=== PATIENT | male | born 1955 | race Caucasian/White ===

== ENCOUNTER 2021-04-07 22:10 | Inpatient (IN) | payer BC, MEDICARE ==
[~2021-04-07] VITALS: Ht 182.9 cm; Wt 102.1 kg
[2021-04-07 22:28] LABS: BASOPHILS # (AUTO) 0.1 (0.0-0.1); BASOPHILS % 0.7 % (0.0-1.0); EOSINOPHILS # (AUTO) 0.1 (0.0-0.4); EOSINOPHILS % 1.1 % (0.0-6.0); HEMATOCRIT 47.6 % (38.2-49.6); HEMOGLOBIN 16.7 g/dL (14.0-18.0); LYMPHOCYTES # (AUTO) 1.9 (1.0-3.2); LYMPHOCYTES % 15.6 % (18.0-39.1); MEAN CORPUSCULAR HEMOGLOBIN 32.5 pg (28-32); MEAN CORPUSCULAR HGB CONC 35.1 g/dL (31-35); MEAN CORPUSCULAR VOLUME 92.6 fL (81-99); MONOCYTES # (AUTO) 0.6 (0.2-0.8); NEUTROPHILS # (AUTO) 9.3 (2.1-6.9); NEUTROPHILS % 76.9 % (38.7-80.0); PLATELET COUNT 196 x10e3/uL (140-360); RED BLOOD COUNT 5.14 x10e6/uL (4.3-5.7); RED CELL DISTRIBUTION WIDTH 12.2 % (11.7-14.4)
[2021-04-07 22:37] LABS: INR 0.93; PROTHROMBIN TIME 12.9 seconds (11.9-14.5)
[2021-04-07 22:38] LABS: PARTIAL THROMBOPLASTIN TIME 28.1 seconds (23.8-35.5)
[2021-04-07] MEDS ORDERED: LIDOCAINE JELLY 2% 10ML URO-JET ONE (22:42)
[2021-04-07 22:47] LABS: ALBUMIN 4.4 g/dL (3.5-5.0); ALBUMIN/GLOBULIN RATIO 1.4 (0.8-2.0); ANION GAP 15.2 mmol/L (8-16); CALCIUM 9.7 mg/dL (8.4-10.2); CREATININE, SERUM 1.59 mg/dL (0.72-1.25); POTASSIUM 4.2 mmol/L (3.5-5.1)
[2021-04-07 22:52] LABS: BACTERIA,URINE FEW /HPF; CLARITY,URINE TURBID (CLEAR); COLOR,URINE RED (YELLOW); EPITHELIAL CELLS,URINE RARE /LPF; KETONES,URINE NEGATIVE (NEGATIVE); LEUKOCYTE ESTERASE ,URINE NEGATIVE (NEGATIVE); NITRITE,URINE POSITIVE (NEGATIVE); PROTEIN,URINE DIPSTICK >=300 (NEGATIVE); RBC,URINE >50 /HPF (0-5); URINE UROBILINOGEN 0.2 mg/dL (0.2 - 1)
[2021-04-07] MEDS ORDERED: IOPAMIDOL 370 MG/ML 200 ML INFUS..BTL INJ ONE (23:42)
[2021-04-07] MEDS ORDERED: SODIUM CHLORIDE 0.9% 250ML 0 ML ONE (23:42)
[2021-04-08] VITALS (7 sets, daily range): BP systolic 121–138; BP diastolic 70–85
[2021-04-08] MEDS ORDERED: Morphine 2mg Syringe 2 MG/ML SYR IV STA (00:55)
[2021-04-08] MEDS ORDERED: ONDANSETRON HCL INJ 2MG/ML 2ML 2 MG/ML VIAL IV STA (01:07)
[2021-04-08] MEDS ORDERED: Morphine 2mg Syringe 2 MG/ML SYR ONE (01:13)
[2021-04-08] MEDS ORDERED: ONDANSETRON HCL INJ 2MG/ML 2ML 2 MG/ML VIAL ONE (01:19)
[2021-04-08] MEDS ORDERED: SODIUM CHLORIDE FLUSH 10 ML SYR INJ PRN (02:00)
[2021-04-08] MEDS ORDERED: ONDANSETRON HCL INJ 2MG/ML 2ML 2 MG/ML VIAL IV PRN (02:00)
[2021-04-08] MEDS: Morphine 4mg Syringe 4 MG/ML INJ IV PRN ×2 (05:33→14:45)
[2021-04-08] MEDS ORDERED: CEFTRIAXONE 1 GM in SODIUM CHLORIDE 0.9% 50ML 50 ML IV SCH (10:00)
[2021-04-08] MEDS ORDERED: METOPROLOL TART50 MG PO (10:23)
[2021-04-08] MEDS ORDERED: ATORVASTATIN CA20 MG PO (10:23)
[2021-04-08] MEDS ORDERED: LISINOPRIL10 MG PO (10:23)
[2021-04-08] MEDS ORDERED: PROTONIX20 MG PO (10:23)
[2021-04-08] MEDS ORDERED: PANTOPRAZOLE SOD 40 MG TABEC PO SCH (10:30)
[2021-04-08] MEDS ORDERED: SODIUM CHLORIDE 0.9% 250ML 250 ML ONE (10:43)
[2021-04-08] MEDS ORDERED: SODIUM CHLORIDE 0.9% 50ML 50 ML ONE (10:51)
[2021-04-08] MEDS ORDERED: GADOBENATE DIMEGLUMINE 1 ML IV ONE (10:52)
[2021-04-08] MEDS ORDERED: HYDROCODON-ACE1 EA11 PO ×2 (16:27→17:10)
[2021-04-08] MEDS ORDERED: CIPRO500 MG PO (16:27)
[2021-04-08] MEDS ORDERED: METOPROLOL TARTRATE 50 MG TAB PO SCH (17:00)
[2021-04-08] MEDS ORDERED: ONDANSETRON HCL 4 MG ORAL DISINTEGRATING TAB PO PRN (18:15)
[2021-04-08] MEDS ORDERED: ATORVASTATIN 20 MG TAB PO SCH (21:00)
[2021-04-10] MEDS ORDERED: HYDROCODON-ACE1 EA11 PO (12:58)
== END 2021-04-08 18:43 | disposition home or self-care (01) | DRG 687 ==
LOC: ER 22:17 → ERHOLD 04-08 02:20 → IMCU 04-08 03:04
PROVIDERS: ADMIT Internal Medicine; ATTEND Internal Medicine
DX: C64.2 Malignant neoplasm of left kidney, except renal pelvis (principal); N39.0 Urinary tract infection, site not specified; R31.9 Hematuria, unspecified; E78.5 Hyperlipidemia, unspecified; I12.9 Hypertensive chronic kidney disease with stage 1 through stage 4 chronic kidney disease, or unspecified chronic kidney disease; N18.9 Chronic kidney disease, unspecified; K21.9 Gastro-esophageal reflux disease without esophagitis; Z90.49 Acquired absence of other specified parts of digestive tract; Z20.822 Contact with and (suspected) exposure to COVID-19
CPT/HCPCS: 36415; 51700; 74176; 74178; 74183; 80053; 81001; 85025; 85610; 85730; 87086; 99284; J0696; J2270; J2405; J7050; Q9967; U0002

== ENCOUNTER 2021-04-21 09:14 | Inpatient (IN) | payer BC, MEDICARE ==
[2021-04-18 14:26] LABS: BASOPHILS # (AUTO) 0.1 (0.0-0.1); BASOPHILS % 0.9 % (0.0-1.0); EOSINOPHILS # (AUTO) 0.2 (0.0-0.4); EOSINOPHILS % 1.9 % (0.0-6.0); HEMATOCRIT 47.4 % (38.2-49.6); HEMOGLOBIN 16.3 g/dL (14.0-18.0); LYMPHOCYTES # (AUTO) 1.7 (1.0-3.2); MEAN CORPUSCULAR HEMOGLOBIN 32.1 pg (28-32); MEAN CORPUSCULAR HGB CONC 34.4 g/dL (31-35); MEAN CORPUSCULAR VOLUME 93.3 fL (81-99); MONOCYTES # (AUTO) 0.8 (0.2-0.8); MONOCYTES % 8.8 % (4.4-11.3); NEUTROPHILS # (AUTO) 5.8 (2.1-6.9); NEUTROPHILS % 67.1 % (38.7-80.0); PLATELET COUNT 230 x10e3/uL (140-360); RED BLOOD COUNT 5.08 x10e6/uL (4.3-5.7); RED CELL DISTRIBUTION WIDTH 11.9 % (11.7-14.4)
[2021-04-18 14:42] LABS: ANION GAP 16.5 mmol/L (8-16); CALCIUM 9.6 mg/dL (8.4-10.2); CREATININE, SERUM 1.48 mg/dL (0.72-1.25); POTASSIUM 4.5 mmol/L (3.5-5.1)
[~2021-04-21] VITALS: Ht 182.9 cm; Wt 99.3 kg
[~2021-04-21 09:14] MED LIST: ATORVASTATIN CA20 MG PO; CATAPRES-TTS 11 EACH TD; CIPRO500 MG PO; HYDROCODON-ACE1 EA11 PO; LISINOPRIL10 MG PO; METOPROLOL TART50 MG PO; PROTONIX20 MG PO
[2021-04-21] MEDS ORDERED: THROMBIN FOR SOLN 5,000 UNIT VIAL ONE (10:06)
[2021-04-21] MEDS ORDERED: MANNITOL 25% 12.5GM/50ML 0 ML ONE (10:06)
[2021-04-21] MEDS ORDERED: CEFTRIAXONE 1 GM VIAL ONE (10:20)
[2021-04-21] MEDS ORDERED: SODIUM CHLORIDE 0.9% 50ML 50 ML ONE (10:20)
[2021-04-21] MEDS ORDERED: METOCLOPRAMIDE HCL 10 MG/2ML VIAL ONE (10:50)
[2021-04-21] MEDS ORDERED: FAMOTIDINE 20 MG/2 ML VIAL IV ONE ×3 (10:50)
[2021-04-21] MEDS ORDERED: POVIDONE IODINE 0.05% 0.05 % ML PO ONE (12:51)
[2021-04-21] MEDS ORDERED: ONDANSETRON HCL INJ 2MG/ML 2ML 2 MG/ML VIAL ONE (12:51)
[2021-04-21] MEDS ORDERED: DEXAMETHASONE SOD PHOS INJ 4 MG/ML SDV ONE (12:51)
[2021-04-21] MEDS ORDERED: PROPOFOL IV EMULSION 10 MG/ML 20 ML VIAL ONE (12:51)
[2021-04-21] MEDS ORDERED: GLYCOPYRROLATE INJ 0.2 MG/ML VIAL ONE (12:51)
[2021-04-21] MEDS ORDERED: LIDOCAINE HCL 2% LOCAL INJ 5 ML SDV VIAL INJ ONE (12:51)
[2021-04-21] MEDS ORDERED: EPHEDRINE SULFATE INJ 50 MG/ML VIAL ONE (12:51)
[2021-04-21] MEDS ORDERED: NEOSTIGMINE 1 MG/ML 10ML VIAL ONE (12:51)
[2021-04-21] MEDS ORDERED: SUCCINYLCHOLINE CHLORIDE 20 MG/ML 10ML VIAL ONE (12:51)
[2021-04-21] MEDS ORDERED: SEVOFLURANE INHAL SOLN 250 ML PEN BTL ONE (12:51)
[2021-04-21] MEDS ORDERED: ROCURONIUM BROMIDE 10 MG/ML 5ML VIAL IV ONE (12:51)
[2021-04-21] MEDS ORDERED: MEPERIDINE HCL INJ 25 MG/ML VIAL ONE (13:33)
[2021-04-21] MEDS ORDERED: MORPHINE SULFATE 1 MG/ML 30ML PCA ONE (14:01)
[2021-04-21] MEDS ORDERED: MORPHINE SULFATE 1 MG/ML 30ML PCA IV PRN (14:45)
[2021-04-21 14:59] VITALS: BP 106/63
[2021-04-21] MEDS: DEXTROSE 5%/LACTATED RINGERS 1,000 ML IV SCH (15:00)
[2021-04-21 15:12] VITALS: BP 106/63
[2021-04-21] MEDS ORDERED: FENTANYL CITRATE/PF 100MCG/2 ML INJ ONE (17:17)
[2021-04-21 20:00] VITALS: BP 110/72
[2021-04-21 21:00] VITALS: BP 110/72
[2021-04-21] MEDS: TAMSULOSIN HCL 0.4 MG CAP PO SCH (21:59)
[2021-04-22] VITALS (8 sets, daily range): BP systolic 100–112; BP diastolic 51–67
[2021-04-22] MEDS: DEXTROSE 5%/LACTATED RINGERS 1,000 ML IV SCH ×3 (00:48→17:56)
[2021-04-22] MEDS ORDERED: HYDROCODONE/APAP 5MG-325MG TAB PO PRN (08:00)
[2021-04-22 08:13] LABS: BASOPHILS % 0.2 % (0.0-1.0); HEMOGLOBIN 13.9 g/dL (14.0-18.0); LYMPHOCYTES # (AUTO) 0.9 (1.0-3.2); LYMPHOCYTES % 5.2 % (18.0-39.1); MEAN CORPUSCULAR HEMOGLOBIN 32.2 pg (28-32); MEAN CORPUSCULAR HGB CONC 34.8 g/dL (31-35); MEAN CORPUSCULAR VOLUME 92.6 fL (81-99); MONOCYTES # (AUTO) 1.1 (0.2-0.8); MONOCYTES % 6.6 % (4.4-11.3); NEUTROPHILS # (AUTO) 14.7 (2.1-6.9); NEUTROPHILS % 87.5 % (38.7-80.0); PLATELET COUNT 194 x10e3/uL (140-360); RED BLOOD COUNT 4.32 x10e6/uL (4.3-5.7); RED CELL DISTRIBUTION WIDTH 11.9 % (11.7-14.4)
[2021-04-22 08:34] LABS: ANION GAP 15.5 mmol/L (8-16); CALCIUM 8.4 mg/dL (8.4-10.2); CREATININE, SERUM 2.09 mg/dL (0.72-1.25); POTASSIUM 4.5 mmol/L (3.5-5.1)
[2021-04-22] MEDS: LISINOPRIL 10 MG TAB PO SCH (09:00)
[2021-04-22] MEDS ORDERED: PANTOPRAZOLE SOD 40 MG TABEC PO SCH (09:00)
[2021-04-22] MEDS ORDERED: PANTOPRAZOLE SOD 40 MG TABEC PO PRN (09:30)
[2021-04-22] MEDS ORDERED: METOPROLOL TARTRATE 50 MG TAB PO SCH (17:00)
[2021-04-22] MEDS: TAMSULOSIN HCL 0.4 MG CAP PO SCH (21:32)
[2021-04-22] MEDS: ATORVASTATIN 20 MG TAB PO SCH (21:32)
[2021-04-22] MEDS: METOPROLOL TARTRATE 50 MG TAB PO SCH (21:33)
[2021-04-23] VITALS (8 sets, daily range): BP systolic 110–125; BP diastolic 65–73
[2021-04-23] MEDS: DEXTROSE 5%/LACTATED RINGERS 1,000 ML IV SCH ×2 (09:00→17:14)
[2021-04-23] MEDS: LISINOPRIL 10 MG TAB PO SCH (10:00)
[2021-04-23] MEDS ORDERED: ASPIRIN81 MG PO (10:48)
[2021-04-23] MEDS ORDERED: LISINOPRIL-HCT1 EAC2 PO (10:48)
[2021-04-23] MEDS ORDERED: CLONIDINE HCL0.1 MG PO (10:48)
[2021-04-23] MEDS: TAMSULOSIN HCL 0.4 MG CAP PO SCH (20:49)
[2021-04-23] MEDS: ATORVASTATIN 20 MG TAB PO SCH (20:49)
[2021-04-23] MEDS: METOPROLOL TARTRATE 50 MG TAB PO SCH (20:50)
[2021-04-24] VITALS: BP 111/62
[2021-04-24 04:00] VITALS: BP 108/66
[2021-04-24] MEDS: DEXTROSE 5%/LACTATED RINGERS 1,000 ML IV SCH (05:24)
[2021-04-24] MEDS ORDERED: BISACODYL 5 MG TAB EC PO PRN (06:15)
[2021-04-24] MEDS ORDERED: POLYETHYLENE GLYCOL 3350 17 GM PACK PO SCH (06:15)
[2021-04-24 07:32] VITALS: BP 113/59
[2021-04-24 08:47] VITALS: BP 113/59
[2021-04-24] MEDS: LISINOPRIL 10 MG TAB PO SCH (08:58)
[2021-04-24 12:21] VITALS: BP 118/66
== END 2021-04-24 12:45 | disposition home or self-care (01) | DRG 658 ==
LOC: OR 09:14 → PACU V 14:14 → MED/SURG 14:40
PROVIDERS: ADMIT Urology; ATTEND Urology
PROC: 0TT10ZZ Resection of Left Kidney, Open Approach (ICD-10-PCS; principal; 2021-04-21 11:30)
DX: C64.2 Malignant neoplasm of left kidney, except renal pelvis (principal); I10 Essential (primary) hypertension; K21.9 Gastro-esophageal reflux disease without esophagitis; Z20.822 Contact with and (suspected) exposure to COVID-19
CPT/HCPCS: 36415; 71046; 80048; 85025; 86850; 86900; 88309; 88329; 93005; J0330; J0696; J1100; J2001; J2150; J2175; J2270; J2405; J2710; J2765; J3010; U0002

== ENCOUNTER → 2021-09-05 | Day surgery (SDC) | payer BC, MEDICARE ==
[~2021-09-05] MED LIST changes: +AMLODIPINE BESY10 MG PO; +ASPIRIN81 MG PO; +CLONIDINE HCL0.1 MG PO; +DEXAMETHASONE SOD PHOS INJ 4 MG/ML SDV ONE; +FENTANYL CITRATE/PF 100MCG/2 ML INJ ONE; +GLYCOPYRROLATE INJ 0.2 MG/ML VIAL ONE; +LIDOCAINE HCL 2% LOCAL INJ 5 ML SDV VIAL INJ ONE; +LISINOPRIL-HCT1 EAC2 PO; +MIDAZOLAM HCL 2 MG/2 ML VIAL ONE; +NEOSTIGMINE 1 MG/ML 10ML VIAL ONE; +ONDANSETRON HCL INJ 2MG/ML 2ML 2 MG/ML VIAL ONE; +POVIDONE IODINE 0.05% 0.05 % ML PO ONE; +PROPOFOL IV EMULSION 10 MG/ML 20 ML VIAL ONE; +ROCURONIUM BROMIDE 10 MG/ML 5ML VIAL IV ONE; +SEVOFLURANE INHAL SOLN 250 ML PEN BTL ONE
[2021-09-05 09:27] LABS: BASOPHILS # (AUTO) 0.1 (0.0-0.1); BASOPHILS % 0.9 % (0.0-1.0); EOSINOPHILS # (AUTO) 0.2 (0.0-0.4); EOSINOPHILS % 2.2 % (0.0-6.0); HEMATOCRIT 48.3 % (38.2-49.6); HEMOGLOBIN 16.9 g/dL (14.0-18.0); LYMPHOCYTES # (AUTO) 1.6 (1.0-3.2); LYMPHOCYTES % 20.8 % (18.0-39.1); MEAN CORPUSCULAR HEMOGLOBIN 31.5 pg (28-32); MEAN CORPUSCULAR VOLUME 89.9 fL (81-99); MONOCYTES # (AUTO) 0.5 (0.2-0.8); MONOCYTES % 7.1 % (4.4-11.3); NEUTROPHILS # (AUTO) 5.1 (2.1-6.9); NEUTROPHILS % 68.6 % (38.7-80.0); PLATELET COUNT 214 x10e3/uL (140-360); RED BLOOD COUNT 5.37 x10e6/uL (4.3-5.7); RED CELL DISTRIBUTION WIDTH 13.4 % (11.7-14.4)
[2021-09-05 12:50] VITALS: BP 112/64
[2021-09-05 12:58] LABS: WBC,FECAL (FECAL LACTOFERRIN) NEGATIVE (NEGATIVE)
[2021-09-07 14:54] LABS: C DIFFICILE TOXIN A&B AMP PROB NEGATIVE (NEGATIVE)
== END | disposition home or self-care (01) ==
LOC: OR 08:43
PROVIDERS: ATTEND Internal Medicine Gastroenterology
DX: K29.50 Unspecified chronic gastritis without bleeding (principal); D12.0 Benign neoplasm of cecum; D12.4 Benign neoplasm of descending colon; K31.7 Polyp of stomach and duodenum; K52.9 Noninfective gastroenteritis and colitis, unspecified; K22.2 Esophageal obstruction; K20.90 Esophagitis, unspecified without bleeding; K31.89 Other diseases of stomach and duodenum; K62.89 Other specified diseases of anus and rectum; K21.9 Gastro-esophageal reflux disease without esophagitis; K64.8 Other hemorrhoids; Z71.3 Dietary counseling and surveillance; I10 Essential (primary) hypertension; E78.5 Hyperlipidemia, unspecified; E78.00 Pure hypercholesterolemia, unspecified; H91.90 Unspecified hearing loss, unspecified ear; Z91.041 Radiographic dye allergy status; Z79.899 Other long term (current) drug therapy; Z68.31 Body mass index [BMI] 31.0-31.9, adult; Z85.528 Personal history of other malignant neoplasm of kidney; Z86.16 Personal history of COVID-19; Z87.891 Personal history of nicotine dependence
CPT/HCPCS: 36415; 43239; 45380; 45385; 83630; 83993; 85025; 87045; 87177; 87328; 87493; C9113; J1100; J2001; J2250; J2405; J2704; J2710; J3010; 45378; 45384

== ENCOUNTER → 2021-09-19 | Outpatient (CLI) | payer MEDICARE ==
[~2021-09-19] MED LIST changes: -DEXAMETHASONE SOD PHOS INJ 4 MG/ML SDV ONE; +DIATRIZOATE MEGL/DIATRIZOA SOD 30 ML BTL PO ONE; -FENTANYL CITRATE/PF 100MCG/2 ML INJ ONE; -GLYCOPYRROLATE INJ 0.2 MG/ML VIAL ONE; +IOPAMIDOL 370 MG/ML 200 ML INFUS..BTL INJ ONE; -LIDOCAINE HCL 2% LOCAL INJ 5 ML SDV VIAL INJ ONE; -MIDAZOLAM HCL 2 MG/2 ML VIAL ONE; -NEOSTIGMINE 1 MG/ML 10ML VIAL ONE; -ONDANSETRON HCL INJ 2MG/ML 2ML 2 MG/ML VIAL ONE; -POVIDONE IODINE 0.05% 0.05 % ML PO ONE; -PROPOFOL IV EMULSION 10 MG/ML 20 ML VIAL ONE; -ROCURONIUM BROMIDE 10 MG/ML 5ML VIAL IV ONE; -SEVOFLURANE INHAL SOLN 250 ML PEN BTL ONE; +SODIUM CHLORIDE 0.9% 250ML 250 ML ONE; +SODIUM CHLORIDE 0.9% 500ML 500 ML ONE; +SODIUM CHLORIDE 0.9% 50ML 50 ML ONE
[2021-09-19 10:14] LABS: CREATININE, SERUM 1.69 mg/dL (0.72-1.25)
== END ==
LOC: CT 09:37
PROVIDERS: ATTEND Internal Medicine Gastroenterology
DX: R12 Heartburn (principal); R14.0 Abdominal distension (gaseous)
CPT/HCPCS: 36415; 71260; 82565; 84520; 96360; J7040; J7050; Q9967

== ENCOUNTER 2022-04-21 16:22 | Emergency (ER) | payer MEDICARE, OTHER ==
[~2022-04-21] VITALS: Ht 182.9 cm; Wt 104.3 kg
[~2022-04-21 16:22] MED LIST changes: -DIATRIZOATE MEGL/DIATRIZOA SOD 30 ML BTL PO ONE; -IOPAMIDOL 370 MG/ML 200 ML INFUS..BTL INJ ONE; -SODIUM CHLORIDE 0.9% 250ML 250 ML ONE; -SODIUM CHLORIDE 0.9% 500ML 500 ML ONE; -SODIUM CHLORIDE 0.9% 50ML 50 ML ONE
[2022-04-21] MEDS ORDERED: CEPHALEXIN500 MG PO (16:55)
[2022-04-21] MEDS ORDERED: TETANUS/DIPHTHERIA TOX ADULT 0.5 ML SYR ONE (16:56)
[2022-04-21] MEDS ORDERED: TETANUS/DIPHTHERIA TOX ADULT 0.5 ML SYR IM ONE (17:00)
== END 2022-04-21 17:32 | disposition home or self-care (01) ==
LOC: FSED 16:47
DX: S61.213A Laceration without foreign body of left middle finger without damage to nail, initial encounter (principal); W26.8XXA Contact with other sharp object(s), not elsewhere classified, initial encounter; Y92.22 Religious institution as the place of occurrence of the external cause; I10 Essential (primary) hypertension; E78.5 Hyperlipidemia, unspecified; K21.9 Gastro-esophageal reflux disease without esophagitis
CPT/HCPCS: 90471; 90714; 99283